=== PATIENT | female | born 1995 | race American Indian/Alaskan Native ===

== ENCOUNTER 2021-09-30 09:31 | Inpatient (IN) | payer BC ==
[2021-09-30] MEDS ORDERED: Methylergonovine 0.2 MG/1 ML Amp IM PRN (10:38)
[2021-09-30] MEDS ORDERED: Carboprost Tromethamine 250 MCG/1 ML Amp IM PRN (10:38)
[2021-09-30] MEDS ORDERED: Tranexamic Acid 1,000 MG in Sodium Chloride 0.9% 100 ML IV PRN (10:38)
[2021-09-30] MEDS ORDERED: Lidocaine 1% 30 ML SDV INJECT PRN (10:38)
[2021-09-30] MEDS ORDERED: Acetaminophen 325 MG Tab PO PRN (10:38)
[2021-09-30] MEDS ORDERED: Misoprostol 400 MCG (4 X 100 MCG TAB) RECTAL PRN (10:38)
[2021-09-30] MEDS ORDERED: Sodium Chloride 0.9% 10 ML Syringe FLUSH PRN (10:38)
[2021-09-30] MEDS ORDERED: Lactated Ringers 1,000 ML IV ONE (10:38)
[2021-09-30] MEDS ORDERED: Nalbuphine 10 MG/1 ML Vial IM PRN ×2 (10:43→17:15)
[2021-09-30] MEDS: Lactated Ringers 1,000 ML IV SCH ×3 (12:00→23:52)
[2021-09-30] MEDS: Oxytocin/Normal Saline 30 UNIT/500 ML BAG IV SCH (12:15)
[2021-09-30] MEDS: Ondansetron 4 MG/2 ML SDV IVPUSH PRN (19:35)
--- NOTE | 2021-09-30 19:38 | HP ---
CHIEF COMPLAINT: Leakage of fluid. HISTORY OF PRESENT ILLNESS: The patient is a 26-year-old G3, P1-0-1-1 at 39 and 6 weeks' gestational age based on ultrasound. The patient presents with her mother to L and D today because she woke at 5 this morning and was soaked due to vaginal leaking. She continued to have leakage of clear fluid through 7 a.m. when she decided to come into L and D. She endorses good movement. Denies vaginal bleeding and does not feel contractions. No signs or symptoms of preeclampsia. OB HISTORY: Gege is a G3, P1-0-1-1. Her first in 2012 resulted in incomplete spontaneous requiring D and C. She delivered her daughter at term for her second in 2013 via vacuum-assisted vaginal delivery with hemorrhage requiring Methergine, Hemabate, and Cytotec with estimated blood loss 700 mL. The patient may be a candidate for TXA with delivery today. LABS: O positive blood type. Negative antibody screen. Rubella immune. Syphilis negative. Hepatitis B nonreactive. HIV negative. Gonorrhea, chlamydia negative. Hep C nonreactive. TSH within normal limits. The patient is GBS negative. PAST MEDICAL HISTORY: Significant for a deliberate self-harm in 2012. SURGICAL HISTORY: D and C for missed in 2012. FAMILY HISTORY: Negative for defects, bleeding problems, or anesthesia problems. SOCIAL HISTORY: The patient is single. She lives in [place] with her daughter. No longer with Calvin, father of baby. She works at [employer]. There is one cat in the home. REVIEW OF SYSTEMS: The patient denies fever, chills, vision changes, headache, shortness of breath, chest pain, nausea, vomiting, right upper quadrant pain, and no edema. MEDICATION: vitamin. ALLERGIES: No known drug allergies. OBJECTIVE: General: The patient is in no acute distress. Well appearing. Vitals: Temperature today is 98.2, pulse 80 beats per minute, blood pressure 106/57, and respiratory rate 18. HEENT: Grossly normal. Heart: Regular rate and rhythm without murmur. Lungs: Clear to auscultation bilaterally. Abdomen: Soft and nontender. heart tracing shows baseline 130s with moderate variability and accels present. This is a category 1 tracing. Tocometer shows contractions every 7 to 10 minutes. Cervical exam, 2 cm dilated, 60% effaced, vertex presentation at -1 station. Extremities: No edema. Neuro: No deficits. ASSESSMENT: 1. 39-6/7 weeks' gestation intrauterine . 2. G3, P1-0-1-1. 3. High-risk in third trimester. 4. History of hemorrhage, tranexamic acid candidate. 5. Premature rupture of membranes. 6. Induction of labor for premature rupture of membranes. PLAN: For Pitocin augmentation of labor and anticipate normal spontaneous vaginal delivery with tranexamic acid available as the patient has history of hemorrhage. The patient was seen by myself and Dr. Robert. Assessment and plan are under advisement of Dr. Robert. Seen with medical student. Patient was personally seen and examined with the medical student practitioner student, Saman Byrd. I reviewed the noted scribed on my behalf and necessary changes have been made to reflect my opinion on the history, exam, assessment, and plan [facility] /[id number] MTDD
[2021-09-30] MEDS ORDERED: fentaNYL 100 MCG/2 ML SDV ONE (22:59)
[2021-09-30] MEDS ORDERED: EPINEPHrine 1 MG/ML SDV ONE (22:59)
[2021-09-30] MEDS ORDERED: Sodium Bicarbonate 4.2% 2.5 MEQ/5 ML SDV ONE (22:59)
--- NOTE | 2021-09-30 23:22 | PCM.SN.2 ---
- Free Text/Narrative Note: Intrathecal. Sitting position, sterile prep and drape. 1% lidocaine for skinwheal to L2 L3 interspace, introducer, 24 ga Pencan x 1. Pos CSF. neg heme, neg parasthesia. 0.1 ml 1:1000 pf epi, 15 mcg pf sufenta, 35 mcg pf fentanyl, 0.4 ml pf NS and 6 mg of 0.75% pf Marcaine injected after CSF aspiration. Pt to L lateral position. Procedure time 4030 to 0068
[2021-09-30] MEDS ORDERED: ePHEDrine 50 MG/ML SDV ONE (23:41)
[2021-09-30] MEDS ORDERED: ePHEDrine 50 MG/ML SDV IVPUSH STA (23:43)
[2021-10-01] MEDS ORDERED: Misoprostol 400 MCG (4 X 100 MCG TAB) RECTAL PRN (01:03)
[2021-10-01] MEDS ORDERED: Tranexamic Acid 1,000 MG in Sodium Chloride 0.9% 100 ML IV PRN (01:03)
[2021-10-01] MEDS ORDERED: Carboprost Tromethamine 250 MCG/1 ML Amp IM PRN (01:03)
[2021-10-01] MEDS ORDERED: Benzocaine/Menthol 20%-0.5% Spray 78 GM Cannister TOP PRN (01:03)
[2021-10-01] MEDS ORDERED: Simethicone 80 MG Tab.Chew PO PRN (01:03)
[2021-10-01] MEDS ORDERED: Sodium Chloride 0.9% 10 ML Syringe FLUSH PRN (01:03)
[2021-10-01] MEDS ORDERED: Oxytocin 10 Units/1 ML SDV IM PRN (01:03)
[2021-10-01] MEDS: Ondansetron 4 MG/2 ML SDV IVPUSH PRN ×2 (01:18→09:45)
[2021-10-01] MEDS: Oxytocin/Normal Saline 30 UNIT/500 ML BAG IV SCH (02:30)
[2021-10-01] MEDS: Ibuprofen 800 MG Tab PO PRN ×2 (03:43→17:10)
--- NOTE | 2021-10-01 08:53 | PN ---
DATE: 09/30/2021 SUBJECTIVE: The patient is using nitrox for pain control. Breathing through contractions. Pitocin is at 12 milliunits per minute. OBJECTIVE: heart tones detecting in the 140s, felt to be reassuring. Tocometer reveals contractions every couple minutes. Vaginal exam reveals to be 2 to 3 cm, 60% effaced, 0 to -1 station, vertex suspected. ASSESSMENT AND PLAN: Intrauterine at 39 and 04/22 by 7 and 11/22 week ultrasound, admitted with prelabor rupture of membranes with rupture membranes around 4 to 5 a.m. earlier today, GBS negative, G3, P1-0-1-1 with history of hemorrhage. She is a TXA candidate, so we will make sure this is available as well as in hemorrhage card and we will continue to follow clinically and closely at this point in time. Continue nitrox if need be. Also if she requests anything for pain, most likely we will give her Nubain if needed and see orders for further details if needed. [facility] /[id number]
--- NOTE | 2021-10-01 08:53 | OBOUT ---
DATE: 09/30/2021 DATE AND TIME OF NST: 09/30/2021. Time, 1100 hours to 1120 hours. REASON FOR NST: 1. Intrauterine at 39 and 6/7 weeks by 7 and 1/7 week ultrasound. 2. Vaginal leaking with confirmation of pre-labor rupture of membranes. 3. GBS negative. 4. History of hemorrhage. TXA candidate and will have medicines ready and discussed with Nursing. 5. History of D and C for incomplete AB in the past. 6. G3, P1-0-1-1. NST INTERPRETATION: During this time period, heart tone at baseline is approximately 130 to 140 and at least two 15 x 15 beats per minute acceleration making this strip reactive as well as reassuring. Tocometer reveals potential of 5 to 6 contractions, minimally felt by patient. ASSESSMENT/PLAN: 1. Nonstress test, reactive and reassuring. 2. Tocometer with contraction. Blood pressure 106/57, heart rate 80, temperature 98.2. The patient was evaluated after tests were done including nitrazine, ferning, pooling and AmniSure which were positive for rupture of membranes and vaginal exam reveals to be 2 cm, 60% effaced, -1 station, vertex suspected. Due to pre-labor rupture of membranes, cervix was unchanged from last week, we will start Pitocin augmentation. Discussed with patient and her female partner who is with her today. In addition, did discuss history of hemorrhage and having cart ready as well as TXA and consider her as a candidate for this. Otherwise, please see H and P done in conjunction with Jeanie Byrd, MS3, seen and agreed. For this records called for, reviewed, summarized and supplemented by patient history. Review of systems notable for H and P. [facility] /[id number]
--- NOTE | 2021-10-01 08:58 | PN ---
DATE: 09/30/2021 SUBJECTIVE: The patient is breathing through her contractions. She is now status post Nubain 1 dose and using her Nitrox. Pitocin is at 18 milliunits/minute. OBJECTIVE: heart tones in the 120s and accelerations seen with vaginal exam. Tocometer reveals every 2-3 minutes. Vaginal exam reveals to be 4+ cm, 75% to 80% effaced, -1 station, vertex suspected, and 2nd bag of water is felt and artificial rupture of membranes done after discussion with the patient yielding copious amounts of clear fluid, and subsequently IUPC was placed thereafter after discussion with the patient. ASSESSMENT AND PLAN: Intrauterine at 39 and 6/7 weeks by 7 and 1/7 weeks' ultrasound admitted in prelabor rupture of membranes at approximately 4 to 5 a.m. this morning when rupture of membranes was noted at home, and subsequently patient has received Pitocin augmentation, Nubain, Nitrox, now having cervical dilation with 2nd bag felt and artificial rupture of membranes and IUPC placed as above. The patient is requesting something for the pain, and will receive intrathecal. We will continue to follow clinically and closely. The patient understands and agrees with the above treatment plan. [facility] /[id number]
--- NOTE | 2021-10-01 08:59 | DEL ---
DATE: 10/01/2021 PREOPERATIVE DIAGNOSES: 1. Intrauterine 40 weeks by 7-11/22 week ultrasound. 2. Prelabor rupture of membranes approximately between 4 to 5 a.m. on 09/30/2021, requiring Pitocin augmentation. 3. Secondary bag of water felt. Evening of 09/30/2021, underwent artificial rupture of membranes and intrauterine pressure catheter placement as slowed, protracted, disordered dilation. 4. Group B Streptococcus negative. 5. History of hemorrhage. Tranexamic acid given after delivery. 6. History of dilation and curettage for incomplete in the past. 7. G3, P1-0-1-1. POSTOPERATIVE DIAGNOSES: 1. Intrauterine 40 weeks by 7-7 week ultrasound, delivered. 2. Tight nuchal cord x1, reduced bluntly at delivery. 3. Prelabor rupture of membranes approximately between 4 to 5 a.m. on 09/30/2021, requiring Pitocin augmentation. 4. Secondary bag of water felt. Evening of 09/30/2021, underwent artificial rupture of membranes and intrauterine pressure catheter placement as slowed, protracted, disordered dilation. 5. Group B Streptococcus negative. 6. History of hemorrhage. Tranexamic acid given after delivery. 7. History of dilation and curettage for incomplete in the past. 8. G3, P1-0-1-1. PROCEDURES PERFORMED: On 09/30/2021, nonstress test, Pitocin augmentation, intrauterine pressure catheter, and artificial rupture of membranes with subsequent spontaneous vaginal delivery on 10/01/2021. BLACK POWDER GLAZING OPERATOR: Jeanie Byrd, MS3 ANESTHESIA/ANALGESIA: The patient received Nubain and nitrox during the first stage of labor and then received an intrathecal later in the first stage of labor. ESTIMATED BLOOD LOSS: 350 mL. FINDINGS: Female. score and weight pending. SUMMARY OF EVENTS: The patient is a 26-year-old G3, P1-0-1-1 intrauterine at 39-6/7 weeks on date of admission (09/30/2021), presented with vaginal leaking starting at approximately 4 to 5 a.m. She subsequently had evaluation done and was positive for nitrazine, ferning, pooling, and AmniSure confirming prelabor rupture of membranes. She underwent NST followed by Pitocin augmentation. Pitocin augmentation got up to 16 to 18 mU/min. Protracted disordered dilation noted with slow dilation. Subsequent evaluation did reveal secondary bag of water and she underwent artificial rupture of membranes followed by IUPC placement and then subsequent intrathecal and then rapidly progressed from 4 cm to complete in less than 2 to 2-1/2 hours. I was called to the room as there were concerns with heart rate dropping with contractions. Upon my entry, I donned sterile gown and gloves, and with the patient pushing with contractions, descent was noted, was noted, and subsequently vertex was delivered in LYDIA presentation. Nuchal cord x1 reduced bluntly and subsequently anterior and posterior shoulders as well as the rest of the infant was delivered without difficulty. Mouth and nares were suctioned. Cord was doubly clamped, cut, and was resuscitated on mother's abdomen. Then, approximately 10 mL of cord blood was obtained for labs. TXA was given as well. Fundal massage ensued. Placenta then delivered with gentle cord traction and fundal massage within 5 to 10 minutes. Perineum, vagina, perirectal areas were examined and noted to have bilateral periurethral abrasions, nonbleeding, nonrepaired. After discussion, the patient had second- degree perineal laceration that was repaired in usual fashion using 3-0 Vicryl with good anesthetic result from the intrathecal. Mother and infant are currently stable at time of dictation. [facility] /[id number]
[2021-10-01] MEDS: Docusate Sodium 100 MG Cap PO PRN ×2 (09:00→21:23)
[2021-10-01] MEDS: Prenatal Multivitamin with Calcium/Folic Acid/Iron Tab PO SCH (09:00)
[2021-10-01] MEDS: Acetaminophen 325 MG Tab PO PRN (21:23)
[2021-10-02] MEDS: Ibuprofen 800 MG Tab PO PRN (02:28)
[2021-10-02] MEDS: Acetaminophen 325 MG Tab PO PRN (08:13)
[2021-10-02] MEDS: Prenatal Multivitamin with Calcium/Folic Acid/Iron Tab PO SCH (08:13)
[2021-10-02] MEDS: Docusate Sodium 100 MG Cap PO PRN (08:13)
[2021-10-02 08:54] VITALS: BP 107/71; PULSE 98
[2021-10-02] MEDS ORDERED: fentaNYL 100 MCG/2 ML SDV ITHECAL ONE (12:03)
[2021-10-02] MEDS ORDERED: Sodium Chloride 0.9% 20 ML SDV ONE (12:03)
[2021-10-02] MEDS ORDERED: Sodium Bicarbonate 4.2% 2.5 MEQ/5 ML SDV ONE (12:03)
--- NOTE | 2021-10-03 07:18 | DISCH ---
ADMISSION DIAGNOSES: 1. Intrauterine at 40 weeks by 7-week ultrasound. 2. labor rupture of membranes approximately between 4 to 5 a.m. on 09/30/2021, requiring Pitocin augmentation. 3. Secondary bag of water felt on evening of 09/30/2021. Underwent artificial rupture of membranes and intrauterine pressure catheter placement. 4. Group B strep negative. 5. History of hemorrhage. Tranexamic acid given after delivery. 6. History of dilation and curettage for incomplete . 7. G3, P1-0-1-1. DISCHARGE DIAGNOSES: 1. Intrauterine at 40 weeks by 7-week ultrasound, delivered. 2. Tight nuchal cord x1 reduced bluntly at delivery. 3. Prelabor rupture of membranes requiring Pitocin augmentation. 4. Secondary bag of water felt. Underwent artificial rupture of membranes and intrauterine pressure catheter placement. 5. Group B strep negative. 6. History of hemorrhage. Tranexamic acid given. 7. History of dilation and curettage for incomplete . 8. G3, P2-0-1-2. PROCEDURES: On 09/30/2021, nonstress test, Pitocin augmentation, placement of intrauterine pressure catheter, artificial rupture of membranes, spontaneous vaginal delivery on 10/01/2021. HISTORY OF PRESENT ILLNESS: The patient is a 26-year-old G3, now P2-0-1-2 with intrauterine at 39-5/7 weeks' on day of admission 09/20/2021, presented with vaginal leaking starting at approximately 4 to 5 a.m. She subsequently had evaluation for rupture of membranes and was positive for ferning and pooling and AmniSure confirming prelabor rupture of membranes. She underwent NST followed by Pitocin augmentation. Pitocin augmentation got up to 16 to 18 mU per minute. The patient had protracted disordered dilation noted. Subsequent evaluation did reveal secondary bag of water. She underwent artificial rupture of membranes followed by IUPC placement and subsequent intrathecal analgesia. The patient then rapidly progressed from 4 cm to complete in less than 2 to 2-1/2 hours. TXA initiated after delivery as patient has a history of delayed post hemorrhage LABS: Admission hgb: 12.0, plts: 279 Discharge hgb: 11, plts: 254 HOSPITAL COURSE: Following delivery, gifford hour and skin to skin initiated, APGARs 9&9. Patient and immediately bonding well. Some difficulty initiating , much improved with teaching by nursing. Pain of mild abdominal cramping well controlled with tylenol and ibuprofen. Lochia significantly decreasing. Ambulating well, Tolerating diet. Voiding appropriately without dysuria. Did pass flatus and one BM before discharge. DISCHARGE CONDITION: Good. DISPOSITION: Discharge to home. MEDICATION: vitamin. INSTRUCTIONS: activity as tolerated. Normal diet. Return for fever, hemorrhage, increase in pain, nausea, vomiting. Followup appointment to be made. Will evaluate mother at 2-day appointment and again at 6-week appointment. This patient was seen by myself and Dr. Robert today. Entire clinical course, assessment and plan have been under advisement of Dr. Robert. Seen with medical student. Patient was personally seen and examined with the medical student practitioner student, Saman Rasmussen. I reviewed the noted scribed on my behalf and necessary changes have been made to reflect my opinion on the history, exam, assessment, and plan [facility] /[id number] ELENI
== END 2021-10-02 12:04 | disposition home or self-care (01) | DRG 560 ==
LOC: DL.OBCHECK 09:31 → DL.OB 10:38 → OBSVTOIN 10-01 00:51
PROVIDERS: ADMIT Family Medicine; ATTEND Family Medicine
PROC: 10E0XZZ Delivery of Products of Conception, External Approach (ICD-10-PCS; principal; 2021-10-01)
PROC: 10907ZC Drainage of Amniotic Fluid, Therapeutic from Products of Conception, Via Natural or Artificial Opening (ICD-10-PCS; 2021-10-01)
PROC: 10H07YZ Insertion of Other Device into Products of Conception, Via Natural or Artificial Opening (ICD-10-PCS; 2021-10-01)
PROC: 0KQM0ZZ Repair Perineum Muscle, Open Approach (ICD-10-PCS; 2021-10-01)
PROC: 3E0R3BZ Introduction of Anesthetic Agent into Spinal Canal, Percutaneous Approach (ICD-10-PCS; 2021-10-01)
PROC: 00HU33Z Insertion of Infusion Device into Spinal Canal, Percutaneous Approach (ICD-10-PCS; 2021-10-01)
DX: O42.02 Full-term premature rupture of membranes, onset of labor within 24 hours of rupture (principal); Z37.0 Single live birth; O69.1XX0 Labor and delivery complicated by cord around neck, with compression, not applicable or unspecified; O70.1 Second degree perineal laceration during delivery; Z20.822 Contact with and (suspected) exposure to COVID-19; Z3A.40 40 weeks gestation of pregnancy; Z28.82 Immunization not carried out because of caregiver refusal
CPT/HCPCS: 01967; 36415; 82274; 84112; 85027; A9270-GY; J2300; J2405; J2590; J3010; J7120; U0002